=== PATIENT | female | born 2000 | race Asian ===

== ENCOUNTER 2022-10-22 17:07 | Inpatient (IN) | payer OTHER ==
[~2022-10-22] VITALS: Ht 167.6 cm; Wt 65.8 kg
[2022-10-22 17:26] VITALS: BP 115/70
[2022-10-22] MEDS ORDERED: HYDROcodone/APAP 5/325 MG 1 TAB TAB PO ONE (19:35)
[2022-10-22 19:49] LABS: BASOPHILS # (AUTO) 0.1 K/uL (0.00-0.22); BASOPHILS % (AUTO) 0.3 % (0.0-2.0); HEMATOCRIT 43.4 % (36-48); HEMOGLOBIN 14.9 g/dL (12.0-16.0); LYMPHOCYTES # (AUTO) 1.4 K/uL (2.5-16.5); LYMPHOCYTES % (AUTO) 8.3 % (20.5-51.1); MEAN CORPUSCULAR HEMOGLOBIN 31 pg (27-31); MEAN CORPUSCULAR HGB CONC 34 g/dL (33-37); MEAN CORPUSCULAR VOLUME 89.6 fL (80-94); MONOCYTES # (AUTO) 0.6 K/uL (0.8-1.0); MONOCYTES % (AUTO) 3.7 % (1.7-9.3); NEUTROPHILS # (AUTO) 14.5 K/uL (1.8-7.7); NEUTROPHILS % (AUTO) 87.7 % (42.2-75.2); PLATELET COUNT (AUTO) 370 K/uL (140-450); RED BLOOD CELL COUNT(AUTO) 4.85 MIL/uL (4.20-5.40); RED CELL DISTRIBUTION WIDTH 12.9 % (11.6-13.7); WHITE BLOOD COUNT (AUTO) 16.5 K/uL (4.5-11.0)
--- NOTE | 2022-10-22 19:50 | NUR ---
PT MOVED TO ER CHAIR
[2022-10-22 20:05] LABS: ALBUMIN 4.8 g/dL (3.4-5.0); ANION GAP 15.6 (8-16); POTASSIUM 4.6 mmol/L (3.5-5.1); TOTAL BILIRUBIN 0.5 mg/dL (0.0-1.0)
--- NOTE | 2022-10-22 20:27 | NUR ---
POSTERIOR LONG ARM SPLINT APPLIED TO L. ARM, W/ SLING. + CMS BEFORE AND AFTER APLLICATION
--- NOTE | 2022-10-22 20:46 | NUR ---
Urine sample collected and sent to lab.
[2022-10-22] MEDS ORDERED: NACL 0.9% 1,000 ML IV ONE (21:05)
[2022-10-22] MEDS ORDERED: VANCOMYCIN PER PHARMACY MC PRN (21:05)
--- NOTE | 2022-10-22 21:42 | NUR ---
PT TAKEN TO BED 1
[2022-10-22] MEDS ORDERED: PIPERACILLIN/TAZOBACTAM 3.375 GM in DEXTROSE 5% 50 ML IV SCH (21:45)
--- NOTE | 2022-10-22 22:12 | NUR ---
22 YO F BIB SELF WITH C/C OF 7/10 LEFT ARM PAIN WITH MOVEMENT S/P FALL DURING GAME. PT STATES ANOTHER PLAYER FELL ON HER ARM. RADIAL/BRACHIAL PULSES STRONG/EQUAL. +DEFORMITY. DENIES HX, RX AND ALLERGIES
--- NOTE | 2022-10-22 22:12 | NUR ---
REPORTS GIVEN TO NICANOR WINTERS EXT:[id number].
--- NOTE | 2022-10-22 22:25 | NUR ---
Patient will be admitted to care of . Admited to M/S. Will go to [id number]. Belongings list completed. Report to NICANOR WINTERS.
[2022-10-22] MEDS ORDERED: VANCOMYCIN 1,000 MG in DEXTROSE 5% 250 ML IV SCH (22:30)
--- NOTE | 2022-10-22 22:30 | NUR ---
RECEIVED PATIENT FROM ED, CAME VIA WHEELCHAIR, PATIENT IS A 4O YR OLD FEMALE, IS AWAKE, ALERT AND ORIENTEDX4, IS AMBULATORY. PER PATIENT SHE WAS PLAYING [employer] AT AROUND 2PM WHEN SHE FELL AND SOMEONE FELL ON TOP OF HER. PATIENT WENT TO URGENT CARE, XRAY WAS DONE AND TO ED FOR FURTHER EVALUATION. PATIENT DIAGNOSED OF FRACTURE OF THE LEFT PROXIMAL ULNA ASSOCIATED WITH DISLOCATION OF RADIAL HEAD. PATIENT ORIENTED TO HER ROOM, AND USE OF CALL LIGHT. PATIENT ADVISED OF NPO STATUS FOR ORIF TOMORROW, VERBALIZED UNDERSTANDING. CALL LIGHT WITHIN REACH. ALL SAFETY MEASURES IN PLACE.
[2022-10-22] MEDS ORDERED: PIPERACILLIN/TAZOBACTAM 3.375 GM VIAL IV ONE (23:03)
[2022-10-22] MEDS ORDERED: VANCOMYCIN 1,000 MG VIAL ONE (23:25)
[2022-10-23] MEDS: MORPHINE SULFATE 2 MG/ML SYR IVP PRN ×2 (00:35→18:50)
--- NOTE | 2022-10-23 00:35 | NUR ---
PRN MORPHINE GIVEN, C/O 05/11 PAIN ON LEFT ARM/ELBOW. BP 138/80.
[2022-10-23 04:00] VITALS: BP 132/81
[2022-10-23] MEDS ORDERED: PIPERACILLIN/TAZOBACTAM 3.375 GM VIAL IV ONE (04:23)
[2022-10-23] MEDS: PIPERACILLIN/TAZOBACTAM 3.375 GM in DEXTROSE 5% 50 ML IV SCH ×3 (04:32→21:07)
--- NOTE | 2022-10-23 04:35 | NUR ---
DUE IV ANTIBIOTIC GIVEN ORDERED. WILL CONTINUE TO MONITOR THE PATIENT.
--- NOTE | 2022-10-23 06:30 | NUR ---
UNABLE TO DRAW BLOOD FROM PICC LINE DESPITE SEVERAL ATTEMPTS.
--- NOTE | 2022-10-23 07:00 | NUR ---
patient received at this time;alert and awake;respirations unlabored.patient NPO for impending surgery.
--- NOTE | 2022-10-23 07:37 | NUR ---
ENDORSED PATIENT TO DAY NURSE FOR CONTINUITY OF CARE. PATIENT IN STABLE CONDITION. NEEDS MET THROUGHOUT THE SHIFT.
[2022-10-23 08:00] VITALS: BP 124/79
--- NOTE | 2022-10-23 08:58 | NUR ---
PATIENT HAS BEEN SCREENED AND CATEGORIZED LOW NUTRITION RISK. PATIENT WILL BE SEEN WITHIN 7 DAYS OF ADMISSION. 10/29/22 REVIEWED BY RONALD MAYO [address]
[2022-10-23] MEDS ORDERED: SUGAMMADEX SODIUM 200 MG/2 ML VIAL IV ONE ×2 (09:00→12:00)
[2022-10-23] MEDS ORDERED: PROPOFOL 200 MG/20 ML VIAL IV ONE ×2 (09:00→09:27)
[2022-10-23] MEDS ORDERED: HYDROmorphone PFS 2 MG/ML SYR ONE ×2 (09:00→09:46)
[2022-10-23] MEDS ORDERED: ONDANSETRON 4 MG/2 ML VIAL ONE ×2 (09:00→11:34)
[2022-10-23] MEDS ORDERED: DEXAMETHASONE 4 MG/ML VIAL ONE (09:00)
[2022-10-23] MEDS ORDERED: ROCURONIUM 50 MG/5 ML VIAL IV ONE ×2 (09:00→09:27)
[2022-10-23] MEDS ORDERED: METOCLOPRAMIDE 10 MG/2 ML INJ VIAL ONE ×2 (09:00→10:30)
[2022-10-23] MEDS ORDERED: fentaNYL citrate 0.05 MG/ML - 50mL vial IV ONE (09:00)
--- NOTE | 2022-10-23 09:05 | NUR ---
patient taken to the O.R at this time.
[2022-10-23] MEDS ORDERED: LIDOCAINE 1% 500 MG/50 ML VIAL ONE (09:13)
[2022-10-23] MEDS ORDERED: BUPIVACAINE-MPF 0.25% 30 ML VIAL INJ ONE (09:13)
[2022-10-23] MEDS ORDERED: HYDROmorphone 1 MG/ML AMP IVP PRN (09:25)
[2022-10-23] MEDS ORDERED: fentaNYL citrate 0.05 MG/ML VIAL ONE (09:26)
[2022-10-23] MEDS ORDERED: SUCCINYLCHOLINE CHLORIDE 200 MG/10 ML VIAL IVP ONE (09:27)
[2022-10-23] MEDS ORDERED: ceFAZolin 1,000 MG VIAL ONE ×2 (09:51)
[2022-10-23] MEDS: VANCOMYCIN 750 MG in DEXTROSE 5% 250 ML IV SCH ×2 (11:00→23:08)
[2022-10-23] MEDS ORDERED: KETOROLAC 30 MG/ML VIAL ONE (11:34)
[2022-10-23] MEDS ORDERED: TRANEXAMIC ACID 1,000 MG/10 ML VIAL ONE (11:39)
[2022-10-23] MEDS: ONDANSETRON 4 MG/2 ML VIAL IVP PRN ×2 (12:35→12:55)
[2022-10-23] MEDS ORDERED: ONDANSETRON 4 MG/5 ML ORASYR GT PRN (12:55)
--- NOTE | 2022-10-23 13:30 | NUR ---
patient returned from at this time.alert and awake;respirations unlabored.s/p left forearm open reduction and internal fixation. left upper extremity dressing intact.patient without complaints.
[2022-10-23 16:00] VITALS: BP 122/75
--- NOTE | 2022-10-23 19:10 | NUR ---
RECEIVED PATIENT SITTING ON THE BED, IS AWAKE, ALERT AND ORIENTED, HAS SLING ON LEFT ARM, DENIES OF PAIN AT THIS TIME, NO SIGNS OF DISTRESS NOTED. CALL LIGHT WITHIN REACH.
[2022-10-23 20:00] VITALS: BP 134/72
--- NOTE | 2022-10-23 21:10 | NUR ---
DUE IV ANTIBIOTIC GIVEN ORDERED, NO ADVERSE REACTIONS NOTED. ALL SAFETY PRECAUTIONS MAINTAINED.
--- NOTE | 2022-10-24 02:30 | NUR ---
PATIENT IS ASLEEP, BREATHING EVEN AND NON LABORED ON ROOM AIR. CALL LIGHT WITHIN REACH.
[2022-10-24 04:00] VITALS: BP 123/70
[2022-10-24] MEDS: PIPERACILLIN/TAZOBACTAM 3.375 GM in DEXTROSE 5% 50 ML IV SCH (04:50)
--- NOTE | 2022-10-24 07:19 | NUR ---
ENDORSED PATIENT TO DAY NURSE FOR CONTINUITY OF CARE. NEEDS MET THROUGHOUT THE SHIFT. PATIENT IN STABLE CONDITION.
[2022-10-24 07:38] LABS: BASOPHILS % (AUTO) 0.3 % (0.0-2.0); EOSINOPHILS # (AUTO) 0.1 K/uL (0-0.4); EOSINOPHILS % (AUTO) 0.6 % (0.0-4.0); HEMATOCRIT 37.4 % (36-48); HEMOGLOBIN 12.7 g/dL (12.0-16.0); LYMPHOCYTES # (AUTO) 2.4 K/uL (2.5-16.5); LYMPHOCYTES % (AUTO) 21.4 % (20.5-51.1); MEAN CORPUSCULAR HEMOGLOBIN 31 pg (27-31); MEAN CORPUSCULAR HGB CONC 34 g/dL (33-37); MEAN CORPUSCULAR VOLUME 89.9 fL (80-94); MONOCYTES % (AUTO) 8.9 % (1.7-9.3); NEUTROPHILS # (AUTO) 7.8 K/uL (1.8-7.7); NEUTROPHILS % (AUTO) 68.8 % (42.2-75.2); PLATELET COUNT (AUTO) 307 K/uL (140-450); RED BLOOD CELL COUNT(AUTO) 4.16 MIL/uL (4.20-5.40); RED CELL DISTRIBUTION WIDTH 12.9 % (11.6-13.7); WHITE BLOOD COUNT (AUTO) 11.3 K/uL (4.5-11.0)
[2022-10-24 07:48] LABS: CARBON DIOXIDE 27.5 mmol/L (21-32); POTASSIUM 3.5 mmol/L (3.5-5.1)
[2022-10-24 08:00] VITALS: BP 143/87
[2022-10-24] MEDS ORDERED: HYDROcodone/APAP 7.5/325 MG 1 TAB PO PRN (08:15)
[2022-10-24] MEDS ORDERED: ERGOCALCIFEROL 50,000 IU SGL PO SCH (09:00)
[2022-10-24] MEDS ORDERED: CEPH-588 PO (10:22)
[2022-10-24] MEDS ORDERED: ERGO-30 PO (10:22)
[2022-10-24] MEDS ORDERED: IBUP-2213 PO (10:23)
[2022-10-24] MEDS ORDERED: HYDR-5080 PO (10:24)
[2022-10-24 11:05] VITALS: BP 143/87
--- NOTE | 2022-10-24 11:55 | NUR ---
DISCHARGE PACKET DISCUSSED WITH PT. PT IV AND NAME BAND REMOVED. ALL BELONGINGS GATHERED BY FRIEND. PT IN STABLE CONDITION. AMBULATED TO [facility]. DC TO HOME.
[2022-10-24] MEDS ORDERED: cephALEXin 500 MG CAP PO SCH (13:00)
== END 2022-10-24 11:55 | disposition home or self-care (01) | DRG 512 ==
LOC: MED 17:07 → MMU 21:12 → MTU 22:15
PROVIDERS: ADMIT Family Medicine; ATTEND Family Medicine
PROC: 2W3BX1Z Immobilization of Left Upper Arm using Splint (ICD-10-PCS; principal; 2022-10-22)
PROC: 0PSJ04Z Reposition Left Radius with Internal Fixation Device, Open Approach (ICD-10-PCS; 2022-10-23)
PROC: 0PSL04Z Reposition Left Ulna with Internal Fixation Device, Open Approach (ICD-10-PCS; 2022-10-23)
DX: S52.272A Monteggia's fracture of left ulna, initial encounter for closed fracture (principal); I10 Essential (primary) hypertension; W18.39XA Other fall on same level, initial encounter; S52.92XA Unspecified fracture of left forearm, initial encounter for closed fracture; G56.30 Lesion of radial nerve, unspecified upper limb; Z20.822 Contact with and (suspected) exposure to COVID-19; Y92.89 Other specified places as the place of occurrence of the external cause; Y93.89 Activity, other specified; Y99.8 Other external cause status
CPT/HCPCS: 36415; 73080; 73090; 80048; 80053; 83036; 83735; 85025; 87081; 93005; 96360; 99285; C1713; J0330; J0690; J1100; J1170; J1885; J2001; J2270; J2405; J2543; J2704; J2765; J3010; J3370; J3490; J7030; J7060; J7120; Q0092